=== PATIENT | female | born 1995 | race Two or more races ===

== ENCOUNTER 2017-01-05 16:19 | Emergency (ER) | payer MEDICAID ==
[~2017-01-05] VITALS: Ht 165.1 cm; Wt 56.7 kg
[2017-01-05 17:41] VITALS: BP 121/53
[2017-01-05] MEDS: ALBUTEROL SULF 2.5 MG/0.5ML(0.5%) NEB SOLN NEB ONE (17:56)
[2017-01-05] MEDS: IPRATROPIUM BROM 0.5 MG/2.5ML INH SOL NEB ONE (17:56)
== END 2017-01-05 18:29 | disposition home or self-care (01) ==
LOC: ER 16:25
DX: J45.901 Unspecified asthma with (acute) exacerbation (principal)
CPT/HCPCS: 94640